=== PATIENT | female | born 1995 | race Caucasian/White ===

== ENCOUNTER 2022-11-05 08:22 | Inpatient (IN) | payer MEDICAID, OTHER ==
[~2022-11-05] VITALS: Ht 157.5 cm; Wt 137.0 kg
[2022-11-05] MEDS ORDERED: METHYLERGONOVINE MALEATE 0.2 MG/ML IM PRN ×2 (09:15→23:30)
[2022-11-05] MEDS ORDERED: MISOPROSTOL 100MCG TABLET RC SCH (09:15)
[2022-11-05] MEDS ORDERED: OXYTOCIN 30 UNITS/500ML NS PMX 500 ML IV SCH ×2 (09:15→23:30)
[2022-11-05] MEDS ORDERED: CARBOPROST TROMETHAMINE 250 MCG/ML AMPUL IM PRN (09:15)
[2022-11-05] MEDS ORDERED: LIDOCAINE HCL 1% 20ML VIAL (Pyxis) INJ INFIL SCH (09:15)
[2022-11-05] MEDS: LACTATED RINGERS 1,000 ML IV SCH ×2 (10:46→17:11)
[2022-11-05] MEDS ORDERED: MISOPROSTOL 25 MCG TABLET VG PRN (11:00)
[2022-11-05] MEDS: MISOPROSTOL 100MCG TABLET VG PRN ×3 (11:23→20:04)
[2022-11-05 11:45] LABS: BASOPHILS % 0.2 % (0.0-2.0); EOSINOPHILS % 1.1 % (0.0-5.0); HEMATOCRIT. 34.6 % (36.0-48.0); HEMOGLOBIN. 11.6 g/dL (12.0-16.0); LYMPHOCYTES % 18.5 % (20.0-50.0); MEAN CORPUSCULAR HEMOGLOBIN 27.3 pg (28.0-32.0); MEAN CORPUSCULAR VOLUME 81.3 fL (81.0-99.0); MONOCYTES % 7.8 % (2.0-8.0); NEUTROPHILS % 72.4 % (40.0-76.0); PLATELET 271 x1000/uL (130-400); RED BLOOD CELL COUNT 4.25 mill/uL (4.2-5.4); RED CELL DISTRIBUTION WIDTH 15.2 % (11.6-14.6)
[2022-11-05 14:05] LABS: HEPATITIS B SURFACE ANTIGEN NEGATIVE
[2022-11-05] MEDS ORDERED: MEPERIDINE HCL/PF 50MG/ML CPJ IM NR ×2 (22:00→22:45)
[2022-11-05] MEDS ORDERED: IBUPROFEN 400MG TABLET PO PRN (23:30)
[2022-11-05] MEDS ORDERED: RHO(D) IMMUNE GLOBULIN 300 MCG/SYR IM PRN (23:30)
[2022-11-05] MEDS ORDERED: LANOLIN OINT 7GM TUBE TOP PRN (23:30)
[2022-11-05] MEDS ORDERED: DIPHENHYDRAMINE 25MG CAPSULE PO PRN (23:30)
[2022-11-06] VITALS (7 sets, daily range): BP systolic 107–128; BP diastolic 53–75; PULSE 88–109; RESP 18; TEMP 97.9–98.7; O2SAT 97–99
[2022-11-06] MEDS ORDERED: MEPERIDINE HCL/PF 25MG/ML CPJ IV NR (01:00)
[2022-11-06] MEDS: IBUPROFEN 800MG TABLET PO PRN ×4 (01:44→22:00)
[2022-11-06 04:09] LABS: CLARITY URINE TURBID (CLEAR); COLOR URINE RED (YELLOW); KETONES URINE 2+ (NEGATIVE); LEUKOCYTE ESTERASE URINE 2+ (NEGATIVE); NITRITE URINE POSITIVE (NEGATIVE); OCCULT BLOOD URINE 3+ (NEGATIVE); PH URINE 6.5 (4.5-8.0); PROTEIN URINE 2+ (NEGATIVE); SPECIFIC GRAVITY URINE 1.023 (1.005-1.030); UROBILINOGEN URINE 0.2 E.U./dL (0.2-1.0)
[2022-11-06 04:26] LABS: *AMPHETAMINES SCREEN URINE NEGATIVE (NEGATIVE); *BARBITURATES SCREEN URINE NEGATIVE (NEGATIVE); *BENZODIAZEPINES SCREEN URINE NEGATIVE (NEGATIVE); *COCAINE SCREEN URINE NEGATIVE (NEGATIVE); CANNABINOID URINE SCREEN NEGATIVE (NEGATIVE); METHADONE URINE SCREEN NEGATIVE (NEGATIVE); OPIATES URINE SCREEN NEGATIVE (NEGATIVE); PHENCYCLIDINE URINE SCREEN NEGATIVE (NEGATIVE)
[2022-11-06 06:28] LABS: BASOPHILS % 0.2 % (0.0-2.0); EOSINOPHILS % 0.2 % (0.0-5.0); HEMATOCRIT. 34.3 % (36.0-48.0); HEMOGLOBIN. 11.6 g/dL (12.0-16.0); MEAN CORPUSCULAR HEMOGLOBIN 27.1 pg (28.0-32.0); MEAN CORPUSCULAR VOLUME 80.3 fL (81.0-99.0); MEAN PLATELET VOLUME 8.5 fl (7.4-10.4); NEUTROPHILS % 79.6 % (40.0-76.0); PLATELET 274 x1000/uL (130-400); RED BLOOD CELL COUNT 4.27 mill/uL (4.2-5.4); RED CELL DISTRIBUTION WIDTH 15.1 % (11.6-14.6)
[2022-11-06] MEDS ORDERED: PRENATAL VIT/FE FUMARATE/FA TABLET PO SCH (09:00)
[2022-11-07 03:30] VITALS: BP 114/71; PULSE 99; RESP 18; TEMP 98
[2022-11-07 04:09] LABS: BASOPHILS % 0.1 % (0.0-2.0); EOSINOPHILS % 1.6 % (0.0-5.0); HEMATOCRIT. 31.6 % (36.0-48.0); HEMOGLOBIN. 10.5 g/dL (12.0-16.0); LYMPHOCYTES % 26.5 % (20.0-50.0); MEAN CORPUSCULAR VOLUME 81.3 fL (81.0-99.0); MEAN PLATELET VOLUME 8.4 fl (7.4-10.4); MONOCYTES % 7.2 % (2.0-8.0); NEUTROPHILS % 64.6 % (40.0-76.0); PLATELET 232 x1000/uL (130-400); RED BLOOD CELL COUNT 3.89 mill/uL (4.2-5.4); RED CELL DISTRIBUTION WIDTH 15.1 % (11.6-14.6)
[2022-11-07 08:00] VITALS: BP 115/70; PULSE 104; RESP 18; TEMP 98.1; O2SAT 98
[2022-11-07] MEDS ORDERED: FERR325T6 MT (10:11)
[2022-11-07] MEDS ORDERED: MULT-1146 MT (10:11)
[2022-11-07] MEDS ORDERED: IBUP-2030 PO (10:11)
== END 2022-11-07 15:05 | disposition home or self-care (01) | DRG 560 ==
LOC: 8 EST LDRP 08:22 → OBSVTOIN 08:22 → EDBD 08:22 → 8EST 11-06 01:05
PROVIDERS: ADMIT Obstetrics & Gynecology; ATTEND Obstetrics & Gynecology
PROC: 10E0XZZ Delivery of Products of Conception, External Approach (ICD-10-PCS; principal; 2022-11-05)
DX: O69.81X0 Labor and delivery complicated by cord around neck, without compression, not applicable or unspecified (principal); Z37.0 Single live birth; D62 Acute posthemorrhagic anemia; O36.63X0 Maternal care for excessive fetal growth, third trimester, not applicable or unspecified; O99.02 Anemia complicating childbirth; O99.214 Obesity complicating childbirth; Z3A.39 39 weeks gestation of pregnancy
CPT/HCPCS: 36415; 80305; 81003; 85025; 86592; 86703; 86762; 86850; 86900; 87340; J2175; J7120; J2590